=== PATIENT | female | born 1995 | race Caucasian/White ===

== ENCOUNTER → 2016-06-26 | Outpatient (CLI) | payer OTHER ==
[2016-01-02 08:34] VITALS: BP 134/90
[~2016-06-26] MED LIST: ACET500T55 PO; FLUT16SP NS; LACT1CAP6 PO; NORE-69 PO; OMEP20CA9 PO; ONDA4TAB10 SL; PANT40TA3 PO; RANI150T2 PO; RANI150T6 PO; ZOLP5TAB PO
[2016-06-26 12:47] LABS: BILIRUBIN,URINE NEGATIVE (NEG); GLUCOSE,URINE NEGATIVE (NEG); NITRITE,URINE NEGATIVE (NEG); PROTEIN,URINE NEGATIVE (NEG-TRACE); UROBILINOGEN,URINE 0.2 mg/dL (0.2 mg/dL)
[2016-06-26 12:59] LABS: BACTERIA,URINE 0 /HPF (0-FEW); RBC,URINE OCC /HPF (0-2); SQUAMOUS EPITHELIAL CELL,UR FEW /LPF
== END | disposition home or self-care (01) ==
LOC: LAB 12:20
PROVIDERS: ATTEND Family Medicine
DX: R30.9 Painful micturition, unspecified (principal)
CPT/HCPCS: 81001

== ENCOUNTER 2016-09-05 05:18 | Emergency (ER) | payer OTHER ==
[~2016-09-05] VITALS: Ht 157.5 cm; Wt 68.0 kg
[2016-09-05] MEDS ORDERED: IV NORMAL SALINE 1000ML BAG 1,000 ML IV SCH (06:30)
[2016-09-05] MEDS ORDERED: ONDANSETRON PF 4 MG/2 ML VIAL. IV ONE (06:30)
[2016-09-05] MEDS ORDERED: FAMOTIDINE 20 MG/2 ML VIAL IVP ONE (06:30)
[2016-09-05 07:02] LABS: BILIRUBIN,URINE SMALL (NEG); GLUCOSE,URINE NEGATIVE (NEG); NITRITE,URINE NEGATIVE (NEG); PROTEIN,URINE 30 mg/dL (NEG-TRACE)
[2016-09-05 07:06] LABS: BACTERIA,URINE MODERATE /HPF (0-FEW); RBC,URINE 0 /HPF (0-2); SQUAMOUS EPITHELIAL CELL,UR OCC /LPF
[2016-09-05 07:09] LABS: BASO % 1 % (0-3); EOS % 1 % (0-3); HEMATOCRIT 45.1 % (36.0-47.0); HEMOGLOBIN 15.4 g/dL (12.0-15.5); LYMPH # 1.8 x10^3/uL (1.0-4.8); LYMPH % 32 % (24-48); MEAN CORPUSCULAR HEMOGLOBIN 32 pg (25-35); MEAN CORPUSCULAR HGB CONC 34 g/dL (31-37); MEAN CORPUSCULAR VOLUME 92 fL (79-100); MONO % 11 % (0-9); NEUT % 56 % (31-73); PLATELET COUNT 165 x10^3/uL (140-400); RED CELL DISTRIBUTION WIDTH 12.2 % (11.5-14.5); WHITE BLOOD COUNT 5.6 x10^3/uL (4.0-11.0)
[2016-09-05 07:12] LABS: ALBUMIN 4.1 g/dL (3.4-5.0); CREATININE 0.6 mg/dL (0.6-1.0); GFR 123.9; TOTAL BILIRUBIN 0.7 mg/dL (0.2-1.0); TOTAL PROTEIN 8.2 g/dL (6.4-8.2)
[2016-09-05 07:15] LABS: POTASSIUM 2.9 mmol/L (3.5-5.1)
[2016-09-05] MEDS ORDERED: POTASSIUM CHLORIDE 20 MEQ TABLET.ER. PO ONE (07:30)
--- NOTE | 2016-09-05 07:39 | PHYS DOC ---
Past Medical History Past Medical History: Other Additional Past Medical Histor: PCOS Past Surgical History: No Surgical History Alcohol Use: Occasionally Drug Use: None Adult General Chief Complaint Chief Complaint: NAUSEA/VOMITING/DIARRHA HPI HPI Patient is a 21 year old female who presents with complaint of abdominal pain, nausea, vomiting, and diarrhea. Patient states her symptoms started 2 days ago. Patient has had numerous stools and episodes of vomiting. Patient denies any hematemesis or hematochezia. Patient states that she has a history of intestinal problems with multiple workups. Patient recently had an EGD [address] Vieira that showed gastritis but no other abnormalities. Patient states she also had a colonoscopy in 2008 which did not show any significant abnormality at that time. Patient states that she had been diagnosed with possible Crohn's disease though she states that this was later determined to not be correct. Patient has been receiving treatment for irritable bowel syndrome over the last few years. Patient states that at rest she is not having any pain, however she starts getting severe cramping before having episodes of vomiting and diarrhea which she rates as 7 out of 10. Review of Systems Review of Systems Constitutional: Fever [] Eyes: Denies change in visual acuity, redness, or eye pain [] HENT: Denies nasal congestion or sore throat [] Respiratory: Denies cough or shortness of breath [] Cardiovascular: Denies chest pain or edema [] GI: Abdominal pain, nausea, vomiting, diarrhea [] : Denies dysuria or hematuria [] Musculoskeletal: Denies back pain or joint pain [] Integument: Denies rash or skin lesions [] Neurologic: Denies headache, focal weakness or sensory changes [] Endocrine: Denies polyuria or polydipsia [] Current Medications Current Medications Current Medications Medications (Trade) Dose Ordered Sig/Juan Start Time Stop Time Status Last Admin Dose Admin Famotidine (Pepcid) 20 mg 1X ONCE 09/05/16 06:30 09/05/16 06:31 DC 09/05/16 06:43 20 MG Ondansetron HCl (Zofran) 4 mg 1X ONCE 09/05/16 06:30 09/05/16 06:31 DC 09/05/16 06:42 4 MG Potassium Chloride (Klor-Con) 40 meq 1X ONCE 09/05/16 07:30 09/05/16 07:31 DC 09/05/16 07:26 40 MEQ Sodium Chloride (Iv Sodium Chloride 0.9% 1000ml Bag) 1,000 ml @ 1,000 mls/hr Q1H 09/05/16 06:30 09/05/16 07:29 DC 09/05/16 06:42 1,000 MLS/HR Allergies Allergies Allergies Coded Allergies Type Severity Reaction Last Updated Verified doxycycline Allergy Intermediate 07/29/15 No Physical Exam Physical Exam Constitutional: Alert, afebrile, appears in mild to moderate discomfort. [] HENT: Normocephalic, atraumatic, bilateral external ears normal, oropharynx moist, no oral exudates, nose normal. [] Eyes: PERRLA, EOMI, conjunctiva normal, no discharge. [] Neck: Normal range of motion, no tenderness, supple, no stridor. [] Cardiovascular:Heart rate regular rhythm, no murmur [] Lungs & Thorax: Bilateral breath sounds clear to auscultation [] Abdomen: Bowel sounds normal, soft, epigastric tenderness to palpation, no guarding or rebound tenderness, no masses, no pulsatile masses. [] Skin: Warm, dry, no erythema, no rash. [] Back: No tenderness, no CVA tenderness. [] Extremities: No tenderness, no cyanosis, no clubbing, ROM intact, no edema. [] Neurologic: Alert and oriented X 3, normal motor function, normal sensory function, no focal deficits noted. [] Current Patient Data Vital Signs Vital Signs Date Time Temp Pulse Resp B/P Pulse Ox O2 Delivery O2 Flow Rate FiO2 09/05/16 08:30 84 18 103/57 100 09/05/16 06:00 Room Air 09/05/16 05:20 97.8 97.8 Lab Values Laboratory Tests Test 09/05/16 06:40 09/05/16 06:45 White Blood Count 5.6x10^3/uL (4.0-11.0) Red Blood Count 4.90x10^6/uL (3.50-5.40) Hemoglobin 15.4g/dL (12.0-15.5) Hematocrit 45.1% (36.0-47.0) Mean Corpuscular Volume 92fL (79-100) Mean Corpuscular Hemoglobin 32pg (25-35) Mean Corpuscular Hemoglobin Concent 34g/dL (31-37) Red Cell Distribution Width 12.2% (11.5-14.5) Platelet Count 165x10^3/uL (140-400) Neutrophils (%) (Auto) 56% (31-73) Lymphocytes (%) (Auto) 32% (24-48) Monocytes (%) (Auto) 11% (0-9) H Eosinophils (%) (Auto) 1% (0-3) Basophils (%) (Auto) 1% (0-3) Neutrophils # (Auto) 3.2x10^3uL (1.8-7.7) Lymphocytes # (Auto) 1.8x10^3/uL (1.0-4.8) Monocytes # (Auto) 0.6x10^3/uL (0.0-1.1) Eosinophils # (Auto) 0.0x10^3/uL (0.0-0.7) Basophils # (Auto) 0.0x10^3/uL (0.0-0.2) Sodium Level 143mmol/L (136-145) Potassium Level 2.9mmol/L (3.5-5.1) *L Chloride Level 104mmol/L (98-107) Carbon Dioxide Level 27mmol/L (21-32) Anion Gap 12 (6-14) Blood Urea Nitrogen 10mg/dL (7-20) Creatinine 0.6mg/dL (0.6-1.0) Estimated GFR (Cockcroft-Gault) 123.9 BUN/Creatinine Ratio 17 (6-20) Glucose Level 88mg/dL (70-99) Calcium Level 9.0mg/dL (8.5-10.1) Total Bilirubin 0.7mg/dL (0.2-1.0) Aspartate Amino Transferase (AST) 21U/L (15-37) Alanine Aminotransferase (ALT) 24U/L (14-59) Alkaline Phosphatase 52U/L (46-116) Total Protein 8.2g/dL (6.4-8.2) Albumin 4.1g/dL (3.4-5.0) Albumin/Globulin Ratio 1.0 (1.0-1.7) Lipase 487U/L (73-393) H Urine Collection Type Unknown Urine Color Sissy Urine Clarity Clear Urine pH 6.0 Urine Specific Clay >=1.030 Urine Protein 30mg/dL (NEG-TRACE) Urine Glucose (UA) Negativemg/dL (NEG) Urine Ketones (Stick) Negativemg/dL (NEG) Urine Blood Negative (NEG) Urine Nitrite Negative (NEG) Urine Bilirubin Small (NEG) Urine Urobilinogen Dipstick 1.0mg/dL (0.2 mg/dL) Urine Leukocyte Esterase Small (NEG) Urine RBC 0/HPF (0-2) Urine WBC 1-4/HPF (0-4) Urine Squamous Epithelial Cells Occ/LPF Urine Bacteria Moderate/HPF (0-FEW) Laboratory Tests 09/05/16 06:40 Laboratory Tests 09/05/16 06:40 Microbiology 09/05/16 Fecal Leukocyte Stain - Final, Complete EKG EKG Interpreted by me: Heart rate 76, sinus rhythm, normal intervals, normal axis, no acute ST/T-wave abnormalities present [] Radiology/Procedures Radiology/Procedures [facility] [address] [place] [address] IMAGING REPORT Signed PATIENT: MACHO CODY ACCOUNT: [id number] : 1995 LOCATION: ER AGE: 21 SEX: F EXAM STATUS: REG ER ORD. PHYSICIAN: MADISON MCDANIELS MD REASON: right upper quadrant pain, elevated lipase PROCEDURE: ABDOMEN LTD Indication: Right upper quadrant pain and nausea. Technique: Right upper quadrant ultrasound was performed. No comparison is available. Findings: Visualized pancreas is unremarkable. IVC is patent. Liver is normal in size and echotexture. Gallbladder is negative. Common bile duct is within normal limits at 3 mm. Right kidney is without hydronephrosis or mass. Impression: Normal right upper quadrant ultrasound. DICTATED and SIGNED BY: JENN SUAZO MD DATE: 09/05/16811 CC: MADISON MCDANIELS MD; Aquiles GRIFFIN MD ~ [] Course & Med Decision Making Course & Med Decision Making Pertinent Labs and Imaging studies reviewed. (See chart for details) Patient was given IV fluids, Pepcid, and Zofran in the emergency department. Patient was found to have low potassium level likely due to vomiting and diarrhea. Patient was given 40 mEq of oral potassium in the emergency department which she was able to tolerate without difficulty. Patient was found have a mildly elevated lipase level. Ultrasound did not reveal acute pathology. Patient on reexamination feels better at this time. Stool culture was collected and sent with results pending at this time. 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 The patient's symptoms could be consistent with a diagnosis of C. difficile infection. At this time I have elected to empirically treat patient with oral Flagyl. Recommended follow-up in 2-[address] Griffin and return to emergency department for any worsening symptoms. Patient voiced understanding and in agreement with treatment plan. Dragon Disclaimer Dragon Disclaimer This electronic medical record was generated, in whole or in part, using a voice recognition dictation system. Departure Departure Impression: Primary Impression: Nausea and vomiting Additional Impressions: Diarrhea Abdominal pain Elevated lipase Hypokalemia Disposition: 01 HOME, SELF-CARE Condition: IMPROVED Referrals: Aquiles GRIFFIN MD (PCP) Patient Instructions: Abdominal Pain (Nonspecific), Diarrhea, Lipase, Nausea and Vomiting Additional Instructions: Follow-up with Dr. Griffin in 2-3 days. Be sure to finish all prescribed antibiotic. Return to the emergency department for any worsening symptoms. Scripts Metronidazole (Flagyl)250 Mg Tablet1 Tab PO TID #30 TAB Prov:MADISON MCDANIELS MD 09/05/16 Ondansetron (Zofran Odt)4 Mg Tab.rapdis4 Mg PO Q8HRS PRN NAUSEA/VOMITING #15 TAB Prov:MADISON MCDANIELS MD 09/05/16 Problem Qualifiers Primary Impression: Nausea and vomiting Vomiting type: unspecified Vomiting Intractability: non-intractable Qualified Code: R11.2 - Nausea with vomiting, unspecified Additional Impressions: Diarrhea Diarrhea type: presumed infectious Qualified Code: A09 - Infectious gastroenteritis and colitis, unspecified Abdominal pain Abdominal location: generalized Qualified Code: R10.84 - Generalized abdominal pain MADISON MCDANIELS MD Sep 05, 2016 07:39
--- NOTE | 2016-09-05 08:16 | RAD ---
Indication: Right upper quadrant pain and nausea. Technique: Right upper quadrant ultrasound was performed. No comparison is available. Findings: Visualized pancreas is unremarkable. IVC is patent. Liver is normal in size and echotexture. Gallbladder is negative. Common bile duct is within normal limits at 3 mm. Right kidney is without hydronephrosis or mass. Impression: Normal right upper quadrant ultrasound.
[2016-09-05 08:30] VITALS: BP 103/57
[2016-09-05] MEDS ORDERED: METR250T PO (08:39)
[2016-09-05] MEDS ORDERED: ONDA4TAB10 PO (08:39)
--- NOTE | 2016-09-05 09:34 | EKG ---
[facility] [address] [place] [address] Test Date: 2016-09-05 Test Time: 05:25:58 Pat Name: MACHO CODY Department: Room: Gender: F [employer]: : 1995 Requested By: MADISON MCDANIELS Order Number: [id number] Reading MD: Ariana Castillo Measurements Intervals [facility] Rate: 76 P: 52 SC: 174 QRS: 14 QRSD: 90 T: 20 QT: 392 QTc: 445 Interpretive Statements SINUS RHYTHM NORMAL EKG RI6.01 Unconfirmed report No previous ECG available for comparison Electronically Signed On 09-06-2016 15:08:46 CDT by Ariana Castillo
== END 2016-09-05 08:56 | disposition home or self-care (01) ==
LOC: ER 05:18
DX: R11.2 Nausea with vomiting, unspecified (principal); R19.7 Diarrhea, unspecified; E87.6 Hypokalemia; R10.9 Unspecified abdominal pain; R74.8 Abnormal levels of other serum enzymes; E28.2 Polycystic ovarian syndrome; Z88.1 Allergy status to other antibiotic agents
CPT/HCPCS: 36415; 76705; 80053; 81001; 83690; 85027; 87086; 87205; 87324; 93005; 96361; 96374; 96375; 99285; J2405; J7030; S0028

== ENCOUNTER → 2016-09-07 | Outpatient (CLI) | payer OTHER ==
[2016-09-05 08:30] VITALS: BP 103/57
[~2016-09-07] MED LIST changes: +METR250T PO; +ONDA4TAB10 PO
[2016-09-07 12:14] LABS: BASO % 1 % (0-3); EOS % 2 % (0-3); HEMATOCRIT 40.6 % (36.0-47.0); HEMOGLOBIN 13.5 g/dL (12.0-15.5); LYMPH # 1.3 x10^3/uL (1.0-4.8); LYMPH % 32 % (24-48); MEAN CORPUSCULAR HEMOGLOBIN 31 pg (25-35); MEAN CORPUSCULAR HGB CONC 33 g/dL (31-37); MEAN CORPUSCULAR VOLUME 92 fL (79-100); MONO % 8 % (0-9); NEUT % 57 % (31-73); PLATELET COUNT 151 x10^3/uL (140-400); RED BLOOD COUNT 4.42 x10^6/uL (3.50-5.40); WHITE BLOOD COUNT 4.1 x10^3/uL (4.0-11.0)
[2016-09-07 12:25] LABS: ALBUMIN 3.4 g/dL (3.4-5.0); ALBUMIN/GLOBULIN RATIO 0.9 (1.0-1.7); CALCIUM 8.7 mg/dL (8.5-10.1); CREATININE 0.7 mg/dL (0.6-1.0); GFR 103.7; POTASSIUM 3.6 mmol/L (3.5-5.1); TOTAL BILIRUBIN 0.6 mg/dL (0.2-1.0); TOTAL PROTEIN 7.3 g/dL (6.4-8.2)
== END | disposition home or self-care (01) ==
LOC: LAB 11:51
PROVIDERS: ATTEND Family Medicine
DX: R10.10 Upper abdominal pain, unspecified (principal)
CPT/HCPCS: 36415; 80053; 82150; 83690; 85027